=== PATIENT | female | born 1975 | race Caucasian/White ===

== ENCOUNTER 2019-11-13 22:01 | Emergency (ER) | payer OTHER ==
[~2019-11-13] VITALS: Ht 167.6 cm; Wt 90.7 kg
[2019-11-13 23:56] LABS: ABSOLUTE NEUTROPHILS 6.5 thou/uL (1.4-8.2); BASOPHILS 0.9 % (0.0-2.0); EOSINOPHILS 2.3 % (0.0-3.0); HEMATOCRIT 48.4 % (37.0-47.0); HEMOGLOBIN 16.2 gm/dL (12.0-15.0); LYMPHOCYTES 31.9 % (24.0-44.0); MCH 29.4 pg (26.0-34.0); MCHC 33.4 g/dL (28.0-37.0); MCV 87.9 fL (80.0-100.0); PLATELET COUNT 222 thou/uL (150-400); POLYS 58.9 % (36.0-66.0); RDW 14.6 % (10.5-14.5)
[2019-11-14 00:37] LABS: ANION GAP 10 mmol/L (7-16); BUN 9 mg/dL (7-18); CALCIUM 9.3 mg/dL (8.5-10.1); CHLORIDE 101 mmol/L (98-107); CO2 25 mmol/L (21-32); CREATININE 0.8 mg/dL (0.6-1.0); GLUCOSE 104 mg/dL (74-106); SODIUM 136 mmol/L (136-145)
[2019-11-14 00:42] LABS: TROPONIN-I <0.06 ng/mL (<0.06)
[2019-11-14] MEDS ORDERED: PREDNISONE 10 M10 MG PO (04:13)
[2019-11-14] MEDS ORDERED: VIBRAMYCIN 100100 MG PO (04:13)
[2019-11-14] MEDS ORDERED: ALBUTEROL2.5 MG/3 M INH (04:13)
[2019-11-14] MEDS ORDERED: PROAIR HFA8.5 GM INH (04:13)
[2019-11-14 04:49] VITALS: BP 125/32
--- NOTE | 2019-11-14 08:04 | EKG ---
[facility] [place] [address] ELECTROCARDIOGRAM REPORT Name: MELYSSA LIGHT Room #: DEP [facility]#: [id number] Admission: 11/13/19 Attend Phys: Discharge: 11/14/19 Date of : 71 Report #: [id number] THIS REPORT FOR: cc: [facility] - Clinic physician unknown [facility] - Clinic physician unknown Ottoniel Campos MD [facility] THIS REPORT FOR: //name// [facility] ED Test Date: 2019-11-14 Test Time: 00:05:07 Pat Name: MELYSSA LIGHT Department: Room: Gender: Lead Nuclear Medicine Technologist: [facility] : 1975 Requested By: Magna Méndez Order Number: [id number] MD: Ottoniel Campos Measurements Intervals [place] Rate: 69 P: 53 PA: 140 QRS: 65 QRSD: 87 T: 69 QT: 397 QTc: 426 Interpretive Statements Sinus rhythm No significant abnormality No previous ECG available for comparison Electronically Signed On 11-14-2019 8:04:01 CDT by Ottoniel Campos [email or web address] <ELECTRONICALLY SIGNED> By: Ottoniel Campos MD, [facility] 11/14/19 0804 0005 0005 Ottoniel Campos MD, FACC /EPI
== END 2019-11-14 05:00 | disposition home or self-care (01) ==
LOC: ER 22:01
PROVIDERS: Emergency Medicine
DX: J44.1 Chronic obstructive pulmonary disease with (acute) exacerbation (principal); F17.210 Nicotine dependence, cigarettes, uncomplicated